=== PATIENT | female | born 1985 | race Hispanic/Latino ===

== ENCOUNTER → 2023-06-16 | Emergency (ER) | payer OTHER ==
[~2023-06-16] VITALS: Ht 160 cm; Wt 81.6 kg
[~2023-06-16] MED LIST: ACETAMINOPHEN 325 MG TAB PO ONE; OSEL75 PO; OSELTAMIVIR PHOSPHATE 75 MG CAP PO ONE
[2023-06-16 16:55] VITALS: BP 129/81; PULSE 118; RESP 20; O2SAT 97
[2023-06-16 17:17] LABS: RAPID GROUP A STREP negative (NEGATIVE)
[2023-06-16 17:25] LABS: SARS-CoV-2, RNA, NAAT NEGATIVE SARS CoV-2 (NEGATIVE)
[2023-06-16 17:27] LABS: INFLUENZA TYPE B Negative For Type B (NEGATIVE)
[2023-06-16 17:31] LABS: INFLUENZA TYPE A Positive For Type A (NEGATIVE)
== END ==
LOC: EDH 16:29
DX: J10.1 Influenza due to other identified influenza virus with other respiratory manifestations (principal); Z20.822 Contact with and (suspected) exposure to COVID-19
CPT/HCPCS: 99283; 87635; 87880; 87804 ×2; C9803